=== PATIENT | female | born 1980 | race Asian ===

== ENCOUNTER 2019-05-17 00:37 | Inpatient (IN) | payer OTHER ==
[~2019-05-17] VITALS: Ht 157.5 cm; Wt 89.8 kg
--- NOTE | 2019-05-17 01:05 | Emergency Room Report ---
History of Present Illness General Chief Complaint: Chest Pain Source: Patient Present Illness HPI Is a 39-year-old female presents after acute onset of central chest discomfort. She reports having acute onset of symptoms. She had prior history of hypertension. She takes only an WINSTON inhibitor. She denies any other prior medical condition. She has no known prior cardiac condition. Allergies: Coded Allergies: No Known Allergies (Unverified , 05/17/19) Patient History Past Medical History: see triage record Last Menstrual Period: 04/14/19 Now: No Reviewed Nursing Documentation: PMH: Agreed; PSxH: Agreed Nursing Documentation-PMH Hx Hypertension: Yes Review of Systems All Other Systems: negative except mentioned in HPI Physical Exam Vital Signs Date Time Temp Pulse Resp B/P (MAP) Pulse Ox O2 Delivery O2 Flow Rate FiO2 05/17/19 00:28 98.2 100 16 198/125 (149) 96 Room Air Sp02 EP Interpretation: reviewed, normal General Appearance: normal inspection, well appearing, no apparent distress, alert Head: normocephalic, atraumatic ENT: normal ENT inspection, hearing grossly normal, normal voice Neck: normal inspection, full range of motion, supple, no bony tend Respiratory: normal inspection, lungs clear, normal breath sounds, no respiratory distress, no retraction, no wheezing Cardiovascular #1: regular rate, rhythm, no edema Gastrointestinal: normal inspection, normal bowel sounds, non tender, soft, no guarding, no hernia Genitourinary: no CVA tenderness Musculoskeletal: normal inspection, back normal, normal range of motion Neurologic: alert, motor strength/tone normal, wireless team member III-XII nml as tested, responsive, speech normal, normal inspection Psychiatric: normal inspection, judgement/insight normal, mood/affect normal Medical Decision Making Diagnostic Impression: Primary Impression: Chest pain Additional Impression: Frequent PVCs ER Course Patient presented for chest pain. Differential diagnosis include was not limited to myocardial injury, arrhythmia, overdose among others. Because of complexity of patient's case laboratory tests and imaging studies were ordered. Patient's laboratory testing showed initial normal troponin. Patient's initial EKG by paramedics showed multiple couplets of PVCs. Patient will be admitted for further evaluation of chest discomfort. Patient appears to be clinically stable. Labs Test 05/17/19 00:45 05/17/19 02:15 White Blood Count 9.6 K/UL (4.8-10.8) Red Blood Count 4.82 M/UL (4.20-5.40) Hemoglobin 13.8 G/DL (12.0-16.0) Hematocrit 42.4 % (37.0-47.0) Mean Corpuscular Volume 88 FL (80-99) Mean Corpuscular Hemoglobin 28.6 PG (27.0-31.0) Mean Corpuscular Hemoglobin Concent 32.5 G/DL (32.0-36.0) Red Cell Distribution Width 12.1 % (11.6-14.8) Platelet Count 324 K/UL (150-450) Mean Platelet Volume 5.6 FL (6.5-10.1) Neutrophils (%) (Auto) 61.9 % (45.0-75.0) Lymphocytes (%) (Auto) 30.4 % (20.0-45.0) Monocytes (%) (Auto) 4.5 % (1.0-10.0) Eosinophils (%) (Auto) 2.3 % (0.0-3.0) Basophils (%) (Auto) 0.9 % (0.0-2.0) Sodium Level 137 MMOL/L (136-145) Potassium Level 4.3 MMOL/L (3.5-5.1) Chloride Level 104 MMOL/L (98-107) Carbon Dioxide Level 26 MMOL/L (21-32) Anion Gap 7 mmol/L (5-15) Blood Urea Nitrogen 17 mg/dL (7-18) Creatinine 1.0 MG/DL (0.55-1.30) Estimat Glomerular Filtration Rate > 60 mL/min (>60) Glucose Level 129 MG/DL (74-106) Calcium Level 8.4 MG/DL (8.5-10.1) Total Bilirubin 0.4 MG/DL (0.2-1.0) Aspartate Amino Transf (AST/SGOT) 58 U/L (15-37) Alanine Aminotransferase (ALT/SGPT) 40 U/L (12-78) Alkaline Phosphatase 73 U/L (46-116) Troponin I 0.000 ng/mL (0.000-0.056) Pro-B-Type Natriuretic Peptide 76 pg/mL (0-125) Total Protein 8.1 G/DL (6.4-8.2) Albumin 3.4 G/DL (3.4-5.0) Globulin 4.7 g/dL Albumin/Globulin Ratio 0.7 (1.0-2.7) Lipase 166 U/L (73-393) Urine Color Pale yellow Urine Appearance Clear Urine pH 6 (4.5-8.0) Urine Specific [place] 1.020 (1.005-1.035) Urine Protein Negative (NEGATIVE) Urine Glucose (UA) Negative (NEGATIVE) Urine Ketones Negative (NEGATIVE) Urine Blood 1+ (NEGATIVE) Urine Nitrite Positive (NEGATIVE) Urine Bilirubin Negative (NEGATIVE) Urine Urobilinogen Normal MG/DL (0.0-1.0) Urine Leukocyte Esterase Negative (NEGATIVE) Urine RBC 0-2 /HPF (0 - 2) Urine WBC 0-2 /HPF (0 - 2) Urine Squamous Epithelial Cells Few /LPF (NONE/OCC) Urine Bacteria Few /HPF (NONE) Urine Oval Fat Bodies /LPF (NONE) Urine HCG, Qualitative Negative (NEGATIVE) EKG Diagnostic Results Rate: normal Rhythm: NSR ST Segments: no acute changes Last Vital Signs Date Time Temp Pulse Resp B/P (MAP) Pulse Ox O2 Delivery O2 Flow Rate FiO2 05/17/19 00:28 98.2 100 16 198/125 (149) 96 Room Air Status: improved Disposition: ADMITTED INPATIENT Condition: Stable Álvaro Ramos MD May 17, 2019 01:05
[2019-05-17 01:12] VITALS: BP 198/125
[2019-05-17 01:19] LABS: BASOPHILS % (AUTO) 0.9 % (0.0-2.0); EOSINOPHILS % (AUTO) 2.3 % (0.0-3.0); HEMATOCRIT 42.4 % (37.0-47.0); HEMOGLOBIN 13.8 G/DL (12.0-16.0); LYMPHOCYTES % (AUTO) 30.4 % (20.0-45.0); MEAN CORPUSCULAR VOLUME 88 FL (80-99); MONOCYTES % (AUTO) 4.5 % (1.0-10.0); NEUTROPHILS % (AUTO) 61.9 % (45.0-75.0); PLATELET COUNT 324 K/UL (150-450); RED BLOOD COUNT 4.82 M/UL (4.20-5.40); RED CELL DISTRIBUTION WIDTH 12.1 % (11.6-14.8); WHITE BLOOD COUNT 9.6 K/UL (4.8-10.8)
[2019-05-17 01:54] LABS: ANION GAP 7 mmol/L (5-15); BLOOD UREA NITROGEN 17 mg/dL (7-18); CALCIUM 8.4 MG/DL (8.5-10.1); CARBON DIOXIDE 26 MMOL/L (21-32); CHLORIDE 104 MMOL/L (98-107); POTASSIUM 4.3 MMOL/L (3.5-5.1); SODIUM 137 MMOL/L (136-145)
[2019-05-17 02:05] LABS: ALANINE AMINOTRANSFERASE 40 U/L (12-78); ALBUMIN 3.4 G/DL (3.4-5.0); ALBUMIN/GLOBULIN RATIO 0.7 (1.0-2.7); ALKALINE PHOSPHATASE 73 U/L (46-116); ASPARTATE AMINO TRANSFERASE 58 U/L (15-37); BILIRUBIN,TOTAL 0.4 MG/DL (0.2-1.0)
[2019-05-17 02:37] LABS: APPEARANCE,URINE CLEAR; BILIRUBIN, URINE NEGATIVE (NEGATIVE); COLOR,URINE PALE YELLOW; GLUCOSE, URINE (UA) NEGATIVE (NEGATIVE); KETONES,URINE NEGATIVE (NEGATIVE); LEUKOCYTE ESTERASE ,URINE NEGATIVE (NEGATIVE); NITRITE,URINE POSITIVE (NEGATIVE); PH,URINE 6 (4.5-8.0); PROTEIN,URINE NEGATIVE (NEGATIVE); UROBILINOGEN,URINE NORMAL MG/DL (0.0-1.0)
[2019-05-17 03:00] VITALS: BP 132/87
[2019-05-17] MEDS ORDERED: LOSARTAN POTASS25 MG ORAL (04:59)
[2019-05-17] MEDS ORDERED: Morphine Sulfate 2mg/ml Inj(IV/IM USE ONLY) IVP PRN ×2 (05:15→09:00)
[2019-05-17 08:00] VITALS: BP 124/90
[2019-05-17] MEDS: D5 1/2NS 1,000 ML IV SCH (08:45)
[2019-05-17] MEDS ORDERED: Morphine Sulfate 4mg/ml Inj (IV USE ONLY) IVP PRN (09:00)
[2019-05-17] MEDS: Losartan 50mg tab ORAL SCH (10:07)
--- NOTE | 2019-05-17 12:00 | Consultation ---
History of Present Illness General Date patient seen: May 17, 2019 Chief Complaint: Chest Pain Present Illness HPI 39 y/o F with hx of HTN presented to ED on 05/17 with acute onset of chest pain that happened when she was getting to fall asleep. has not had chest pain before , no SOB, cough, f/c. Has been having gas and abdominal bloating. Allergies: Coded Allergies: No Known Allergies (Unverified , 05/17/19) Medication History Scheduled Losartan Potassium* (Losartan Potassium*), 10 MG ORAL DAILY, (Reported) Patient History Healthcare decision maker Resuscitation status Advanced Directive on File Patient History Narrative Pmhx: as above Shx: reviewed Fhx: non contributory Physical Exam Last 24 Hour Vital Signs Date Time Temp Pulse Resp B/P (MAP) Pulse Ox O2 Delivery O2 Flow Rate FiO2 05/17/19 10:07 124/90 05/17/19 08:00 97.7 98 20 124/90 (101) 97 05/17/19 07:20 Room Air 05/17/19 05:30 98.6 98 16 132/87 98 Room Air 05/17/19 03:00 98.6 98 16 132/87 98 Room Air 05/17/19 01:12 100 16 Room Air 05/17/19 01:12 98.2 110 16 198/125 96 Room Air 05/17/19 00:28 98.2 100 16 198/125 (149) 96 Room Air Intake and Output 05/16/19 05/17/19 19:00 07:00 Output Total 0 ml Balance 0 ml Output Urine Total 0 ml Laboratory Tests Test 05/17/19 00:45 05/17/19 02:15 White Blood Count 9.6 K/UL (4.8-10.8) Red Blood Count 4.82 M/UL (4.20-5.40) Hemoglobin 13.8 G/DL (12.0-16.0) Hematocrit 42.4 % (37.0-47.0) Mean Corpuscular Volume 88 FL (80-99) Mean Corpuscular Hemoglobin 28.6 PG (27.0-31.0) Mean Corpuscular Hemoglobin Concent 32.5 G/DL (32.0-36.0) Red Cell Distribution Width 12.1 % (11.6-14.8) Platelet Count 324 K/UL (150-450) Mean Platelet Volume 5.6 FL (6.5-10.1) L Neutrophils (%) (Auto) 61.9 % (45.0-75.0) Lymphocytes (%) (Auto) 30.4 % (20.0-45.0) Monocytes (%) (Auto) 4.5 % (1.0-10.0) Eosinophils (%) (Auto) 2.3 % (0.0-3.0) Basophils (%) (Auto) 0.9 % (0.0-2.0) Sodium Level 137 MMOL/L (136-145) Potassium Level 4.3 MMOL/L (3.5-5.1) Chloride Level 104 MMOL/L (98-107) Carbon Dioxide Level 26 MMOL/L (21-32) Anion Gap 7 mmol/L (5-15) Blood Urea Nitrogen 17 mg/dL (7-18) Creatinine 1.0 MG/DL (0.55-1.30) Estimat Glomerular Filtration Rate > 60 mL/min (>60) Glucose Level 129 MG/DL (74-106) H Calcium Level 8.4 MG/DL (8.5-10.1) L Total Bilirubin 0.4 MG/DL (0.2-1.0) Aspartate Amino Transf (AST/SGOT) 58 U/L (15-37) H Alanine Aminotransferase (ALT/SGPT) 40 U/L (12-78) Alkaline Phosphatase 73 U/L (46-116) Troponin I 0.000 ng/mL (0.000-0.056) Pro-B-Type Natriuretic Peptide 76 pg/mL (0-125) Total Protein 8.1 G/DL (6.4-8.2) Albumin 3.4 G/DL (3.4-5.0) Globulin 4.7 g/dL Albumin/Globulin Ratio 0.7 (1.0-2.7) L Lipase 166 U/L (73-393) Urine Color Pale yellow Urine Appearance Clear Urine pH 6 (4.5-8.0) Urine Specific [place] 1.020 (1.005-1.035) Urine Protein Negative (NEGATIVE) Urine Glucose (UA) Negative (NEGATIVE) Urine Ketones Negative (NEGATIVE) Urine Blood 1+ (NEGATIVE) H Urine Nitrite Positive (NEGATIVE) H Urine Bilirubin Negative (NEGATIVE) Urine Urobilinogen Normal MG/DL (0.0-1.0) Urine Leukocyte Esterase Negative (NEGATIVE) Urine RBC 0-2 /HPF (0 - 2) Urine WBC 0-2 /HPF (0 - 2) Urine Squamous Epithelial Cells Few /LPF (NONE/OCC) Urine Bacteria Few /HPF (NONE) Urine Oval Fat Bodies /LPF (NONE) Urine HCG, Qualitative Negative (NEGATIVE) Height (Feet): 5 Height (Inches): 2.00 Weight (Pounds): 180 Medications Current Medications Medications (Trade) Dose Ordered Sig/Eric Route PRN Reason Start Time Stop Time Status Last Admin Dose Admin Dextrose/Sodium Chloride 1,000 ml @ 60 mls/hr [id number] IV 05/17/19 08:45 06/16/19 08:44 05/17/19 08:45 Losartan Potassium (Cozaar) 100 mg DAILY ORAL 05/17/19 09:00 06/16/19 08:59 05/17/19 10:07 Morphine Sulfate (Morphine Sulfate) 2 mg Q4H PRN IVP Severe Pain (Pain Scale 7-10) 05/17/19 09:00 05/24/19 08:59 Ondansetron HCl (Zofran) 4 mg PRN PRN IVP Nausea & Vomiting 05/17/19 05:15 Assessment/Plan Assessment/Plan: Abx: None Assessment: Chest pain Afebrile No leukocytosis -CXR p HTN Plan: -Continue to monitor off abx -f/u cx -Monitor CBC/CMP, temperatures Thank you for this consultation. Will continue to follow along with you. Discussed with Vijaya Griffin M.D. May 17, 2019 12:00
--- NOTE | 2019-05-17 12:45 | Cardiology Report ---
APPROVED REPORT EKG Measurement Heart [id number] 140P26 [id number] Sinus tachycardia with frequent premature ventricular complexes Otherwise normal ECG
[2019-05-17 16:00] VITALS: BP 120/79
--- NOTE | 2019-05-17 16:00 | History and Physical Report ---
DATE OF ADMISSION: 05/17/2019 TIME SEEN: 11 a.m. TUBE HEATER: Jerson Reynolds M.D. CHIEF COMPLAINT: Chest pain. BRIEF HISTORY: This is a 39-year-old female, who lives at home, presented yesterday afternoon with the chest pain, pressure-like, substernal. No radiation. No nausea or vomiting. No dizziness. No short of breath. The patient came to [facility], diagnosed with the above, admitted to telemetry for further treatment. Currently, chest pain has somewhat improved, no complaint. REVIEW OF SYSTEMS: Slight chest pain. No shortness of breath. No nausea, vomiting, or diarrhea. PAST MEDICAL HISTORY: Hypertension. PAST SURGICAL HISTORY: Ovarian cyst in the left. ALLERGIES: Denies. MEDICATIONS: Include morphine, losartan, Zofran, and magnesium. SOCIAL HISTORY: No smoking. No alcohol. No intravenous drug abuse. FAMILY HISTORY: Noncontributory. PHYSICAL EXAMINATION: GENERAL: Calm in bed, oriented x3, in no acute distress. VITAL SIGNS: Temperature is 97 degrees, pulse 98, respirations 20, and blood pressure 124/90. CARDIOVASCULAR: No murmur. LUNGS: Distant and clear. ABDOMEN: Positive bowel sounds. Soft, nontender, nondistended. EXTREMITIES: Show no cyanosis, clubbing, or edema NEUROLOGIC: The patient moves all extremities, slightly weak. LABORATORY AND DIAGNOSTIC DATA: CBC is normal. BMP shows glucose 129. Calcium 8.4. AST 58. Troponin 0.00. Lipase 166. Urinalysis showed positive nitrite. ASSESSMENT: 1. Chest pain. 2. Urinary tract infection. 3. Hypertension. PLAN: 1. Blood pressure and pain control. 2. Dietary followup. 3. Antibiotics per Infectious Disease. Saul Huggins D.O. DR: ELAINE JOB#: [id number] CC:
--- NOTE | 2019-05-17 17:01 | Diagnostic Imaging Report ---
Indication: Chest pain Technique: One view of the chest Comparison: none Findings: Lungs and pleural spaces are clear. Heart size is normal. Impression: No acute process
--- NOTE | 2019-05-17 18:50 | Cardiology Progress Note ---
Assessment/Plan Assessment/Plan The patient is seen and examined, full consult note will be dictated soon. Objective Last 24 Hour Vital Signs Date Time Temp Pulse Resp B/P (MAP) Pulse Ox O2 Delivery O2 Flow Rate FiO2 05/17/19 16:00 86 05/17/19 16:00 97.7 84 18 120/79 (93) 96 05/17/19 12:00 85 05/17/19 10:07 124/90 05/17/19 09:00 Room Air 05/17/19 08:00 97.7 98 20 124/90 (101) 97 05/17/19 08:00 83 05/17/19 07:20 Room Air 05/17/19 05:30 98.6 98 16 132/87 98 Room Air 05/17/19 03:00 98.6 98 16 132/87 98 Room Air 05/17/19 01:12 100 16 Room Air 05/17/19 01:12 98.2 110 16 198/125 96 Room Air 05/17/19 00:28 98.2 100 16 198/125 (149) 96 Room Air Intake and Output 05/16/19 05/17/19 18:59 06:59 Output Total 0 ml Balance 0 ml Output Urine Total 0 ml Laboratory Tests Test 05/17/19 00:45 05/17/19 02:15 05/17/19 16:00 White Blood Count 9.6 K/UL (4.8-10.8) Red Blood Count 4.82 M/UL (4.20-5.40) Hemoglobin 13.8 G/DL (12.0-16.0) Hematocrit 42.4 % (37.0-47.0) Mean Corpuscular Volume 88 FL (80-99) Mean Corpuscular Hemoglobin 28.6 PG (27.0-31.0) Mean Corpuscular Hemoglobin Concent 32.5 G/DL (32.0-36.0) Red Cell Distribution Width 12.1 % (11.6-14.8) Platelet Count 324 K/UL (150-450) Mean Platelet Volume 5.6 FL (6.5-10.1) L Neutrophils (%) (Auto) 61.9 % (45.0-75.0) Lymphocytes (%) (Auto) 30.4 % (20.0-45.0) Monocytes (%) (Auto) 4.5 % (1.0-10.0) Eosinophils (%) (Auto) 2.3 % (0.0-3.0) Basophils (%) (Auto) 0.9 % (0.0-2.0) Sodium Level 137 MMOL/L (136-145) Potassium Level 4.3 MMOL/L (3.5-5.1) Chloride Level 104 MMOL/L (98-107) Carbon Dioxide Level 26 MMOL/L (21-32) Anion Gap 7 mmol/L (5-15) Blood Urea Nitrogen 17 mg/dL (7-18) Creatinine 1.0 MG/DL (0.55-1.30) Estimat Glomerular Filtration Rate > 60 mL/min (>60) Glucose Level 129 MG/DL (74-106) H Calcium Level 8.4 MG/DL (8.5-10.1) L Total Bilirubin 0.4 MG/DL (0.2-1.0) Aspartate Amino Transf (AST/SGOT) 58 U/L (15-37) H Alanine Aminotransferase (ALT/SGPT) 40 U/L (12-78) Alkaline Phosphatase 73 U/L (46-116) Troponin I 0.000 ng/mL (0.000-0.056) 0.000 ng/mL (0.000-0.056) Pro-B-Type Natriuretic Peptide 76 pg/mL (0-125) Total Protein 8.1 G/DL (6.4-8.2) Albumin 3.4 G/DL (3.4-5.0) Globulin 4.7 g/dL Albumin/Globulin Ratio 0.7 (1.0-2.7) L Lipase 166 U/L (73-393) Urine Color Pale yellow Urine Appearance Clear Urine pH 6 (4.5-8.0) Urine Specific [place] 1.020 (1.005-1.035) Urine Protein Negative (NEGATIVE) Urine Glucose (UA) Negative (NEGATIVE) Urine Ketones Negative (NEGATIVE) Urine Blood 1+ (NEGATIVE) H Urine Nitrite Positive (NEGATIVE) H Urine Bilirubin Negative (NEGATIVE) Urine Urobilinogen Normal MG/DL (0.0-1.0) Urine Leukocyte Esterase Negative (NEGATIVE) Urine RBC 0-2 /HPF (0 - 2) Urine WBC 0-2 /HPF (0 - 2) Urine Squamous Epithelial Cells Few /LPF (NONE/OCC) Urine Bacteria Few /HPF (NONE) Urine Oval Fat Bodies /LPF (NONE) Urine HCG, Qualitative Negative (NEGATIVE) Jerson Reynolds MD May 17, 2019 18:50
[2019-05-17 20:00] VITALS: BP 129/69
--- NOTE | 2019-05-17 23:15 | Consultation ---
DATE OF CONSULTATION: 05/17/2019 CARDIOLOGY CONSULTATION CONSULTING PHYSICIAN: Jerson Reynolds M.D. REFERRING PHYSICIAN: Saul Huggins D.O. REASON FOR CONSULTATION: Management of chest pain. HISTORY OF PRESENT ILLNESS: The patient is a very pleasant 39-year-old female, who presents to the hospital with acute onset of chest pain that occurred last night while at home at the center of the chest, pressure like, nonradiating, and non-provoked. The patient had which was reported to be very high. At the time of arrival of paramedics, the patient had a rhythm strip which showed presence of PVCs and also blood pressure was reported to be elevated. At the time of arrival to this facility, blood pressure was recorded at 198/125 mmHg. The heart rate was 100. A 12-lead electrocardiogram shows sinus tachycardia at the rate of 104 with single ventricular premature complex. The patient states that she is going through hormonal changes and has been having irregular monthly cycles and associated hot flashes. She has had left ovarian cyst removed in the past. Denies any history of polycystic ovarian syndrome. She claims that she has been on losartan for blood pressure management. She tried diuretic in the past. She is seen by a rivet driver at [facility], who obtained a 2D echocardiography recently and was told that her heart was normal. She does not have any prior history of stress testing. PAST MEDICAL HISTORY: Hypertension and left ovarian cyst removal. PAST SURGICAL HISTORY: Status post left ovarian cyst removal. FAMILY HISTORY: No premature coronary artery disease in first-degree relatives. ALLERGIES: No known drug allergies. MEDICATIONS: List of medication: Losartan 100 mg p.o. daily. REVIEW OF SYSTEMS: A 12-system review done and essentially negative except what was mentioned in the history of present illness. PHYSICAL EXAMINATION: VITAL SIGNS: Blood pressure was 198/125 mmHg, heart rate of 100, respirations 16, temperature 98.2 degrees Fahrenheit, and O2 saturation 96% on room air. GENERAL: The patient is a very pleasant 39-year-old female, in no apparent respiratory distress. Alert and oriented x4. HEENT: Atraumatic and normocephalic. Anicteric. Pupils are equal, round, and reactive to light and accommodation. Extraocular muscles intact. NECK: JVP less than 5 cm. No carotid bruit. Carotid upstroke is 2+ bilaterally. CARDIOVASCULAR SYSTEM: Normal S1, S2. Regular rate and rhythm. Tachycardic. No murmurs, gallops, or rubs. PMI is at fourth intercostal space in the midclavicular line. LUNGS: Clear to auscultation bilaterally. ABDOMEN: Soft, nontender, and nondistended. No hepatosplenomegaly. Positive bowel sounds. EXTREMITIES: No evidence of edema, clubbing, or cyanosis. LABORATORY FINDINGS: WBC 9.6, hemoglobin 13.8, hematocrit 42.4%, and platelet count is 324,000. Sodium was 137, potassium is 4.3, chloride is 104, bicarbonate 26, BUN of 17, creatinine 1.0, glucose is 129, and calcium is 8.4. Troponin I x2 negative. ProBNP was 76. ASSESSMENT AND PLAN: The patient is a very unfortunate 39-year-old lady, who is seen in Cardiology consultation. 1. Atypical chest pain. CAD risk factors include hypertension. Chest x-ray is within normal limits. A 12-lead electrocardiogram does not show any acute ischemic features. I would like to obtain treadmill stress testing to rule out obstructive CAD. A 2D echocardiography will be done to assess left ventricular systolic. I would like to proceed with treadmill stress and echocardiography to rule out obstructive CAD. 2. History of hypertension. I would like to continue losartan as the patient's blood pressure is within normal limits. I will try to avoid beta-dunia and amlodipine until after the stress test is completed. Fasting lipid panel will be done for CAD risk stratification. I would like to thank, Dr. Huggins, for the courtesy of this consultation. Jerson Reynolds M.D. DR: Cyn JOB#: [id number] CC:
[2019-05-18] VITALS: BP 132/71
[2019-05-18] MEDS: D5 1/2NS 1,000 ML IV SCH ×2 (01:25→18:05)
[2019-05-18 04:00] VITALS: BP 124/86
[2019-05-18 08:00] VITALS: BP 123/95
[2019-05-18 09:30] LABS: BASOPHILS % (AUTO) 1.1 % (0.0-2.0); EOSINOPHILS % (AUTO) 3.5 % (0.0-3.0); HEMATOCRIT 39.8 % (37.0-47.0); HEMOGLOBIN 13.2 G/DL (12.0-16.0); LYMPHOCYTES % (AUTO) 28.9 % (20.0-45.0); MEAN CORPUSCULAR VOLUME 88 FL (80-99); MONOCYTES % (AUTO) 4.9 % (1.0-10.0); NEUTROPHILS % (AUTO) 61.6 % (45.0-75.0); PLATELET COUNT 296 K/UL (150-450)
[2019-05-18 09:40] LABS: ANION GAP 8 mmol/L (5-15); BLOOD UREA NITROGEN 15 mg/dL (7-18); CALCIUM 8.6 MG/DL (8.5-10.1); CARBON DIOXIDE 24 MMOL/L (21-32); CHLORIDE 107 MMOL/L (98-107); CHOLESTEROL 160 MG/DL (< 200); CREATININE 0.7 MG/DL (0.55-1.30); HDL CHOLESTEROL 43 MG/DL (40-60); POTASSIUM 4.2 MMOL/L (3.5-5.1); SODIUM 139 MMOL/L (136-145); TRIGLYCERIDES 59 MG/DL (30-150)
--- NOTE | 2019-05-18 10:06 | General Progress Note ---
Assessment/Plan Problem List: (1) Frequent PVCs ICD Codes: I49.3 - Ventricular premature depolarization SNOMED: 19342535 (2) Chest pain ICD Codes: R07.9 - Chest pain, unspecified SNOMED: 06380525 Status: stable, progressing Assessment/Plan: cardio f/u dc if clear Subjective Constitutional: Reports: weakness Allergies: Coded Allergies: No Known Allergies (Unverified , 05/17/19) All Systems: reviewed and negative except above Subjective calm in bed Objective Last 24 Hour Vital Signs Date Time Temp Pulse Resp B/P (MAP) Pulse Ox O2 Delivery O2 Flow Rate FiO2 05/18/19 04:00 98.0 80 18 124/86 (99) 99 05/18/19 04:00 86 05/18/19 00:00 97.9 85 18 132/71 (91) 99 05/18/19 00:00 83 05/17/19 21:00 Room Air 05/17/19 20:00 90 05/17/19 20:00 97.9 79 18 129/69 (89) 97 05/17/19 16:00 86 05/17/19 16:00 97.7 84 18 120/79 (93) 96 05/17/19 12:00 85 05/17/19 10:07 124/90 Intake and Output 05/17/19 05/18/19 19:00 07:00 Intake Total 140 ml Output Total 500 ml Balance -360 ml Intake Oral 140 ml Output Urine Total 500 ml # Voids 3 2 Laboratory Tests 05/17/19 16:00: Troponin I 0.000 05/18/19 01:00: Troponin I 0.000 05/18/19 09:00: Troponin I 0.000, White Blood Count 8.0, Red Blood Count 4.50, Hemoglobin 13.2, Hematocrit 39.8, Mean Corpuscular Volume 88, Mean Corpuscular Hemoglobin 29.4, Mean Corpuscular Hemoglobin Concent 33.2, Red Cell Distribution Width 12.0, Platelet Count 296, Mean Platelet Volume 5.6L, Neutrophils (%) (Auto) 61.6, Lymphocytes (%) (Auto) 28.9, Monocytes (%) (Auto) 4.9, Eosinophils (%) (Auto) 3.5H, Basophils (%) (Auto) 1.1, Sodium Level 139, Potassium Level 4.2, Chloride Level 107, Carbon Dioxide Level 24, Anion Gap 8, Blood Urea Nitrogen 15, Creatinine 0.7, Estimat Glomerular Filtration Rate > 60, Glucose Level 89, Calcium Level 8.6, Triglycerides Level 59, Cholesterol Level 160, LDL Cholesterol 102H, HDL Cholesterol 43, Cholesterol/HDL Ratio 3.7 Height (Feet): 5 Height (Inches): 2.00 Weight (Pounds): 180 General Appearance: alert EENT: normal ENT inspection Neck: normal alignment Cardiovascular: normal peripheral pulses, normal rate, regular rhythm Respiratory/Chest: chest wall non-tender, lungs clear, normal breath sounds Abdomen: normal bowel sounds, non tender, soft Extremities: normal inspection Edema: no edema noted Arm (L), no edema noted Arm (R), no edema noted Leg (L), no edema noted Leg (R), no edema noted Pedal (L), no edema noted Pedal (R), no edema noted Generalized Neurologic: responsive Skin: normal pigmentation, warm/dry Saul Huggins DO May 18, 2019 10:06
[2019-05-18] MEDS: Losartan 50mg tab ORAL SCH (10:09)
[2019-05-18 12:00] VITALS: BP 108/69
--- NOTE | 2019-05-18 13:26 | Infectious Diseases Prog Note ---
Assessment/Plan Assessment/Plan Abx: None Assessment: Chest pain Afebrile No leukocytosis -CXR No acute process HTN Plan: -Continue to monitor off abx -f/u cx -Monitor CBC/CMP, temperatures Thank you for this consultation. Will continue to follow along with you. Discussed with RN Subjective Allergies: Coded Allergies: No Known Allergies (Unverified , 05/17/19) Subjective afebrile no leukocytosis off abx Objective Vital Signs Last 24 Hour Vital Signs Date Time Temp Pulse Resp B/P (MAP) Pulse Ox O2 Delivery O2 Flow Rate FiO2 05/18/19 10:09 132/94 05/18/19 09:00 Room Air 05/18/19 04:00 98.0 80 18 124/86 (99) 99 05/18/19 04:00 86 05/18/19 00:00 97.9 85 18 132/71 (91) 99 05/18/19 00:00 83 05/17/19 21:00 Room Air 05/17/19 20:00 90 05/17/19 20:00 97.9 79 18 129/69 (89) 97 05/17/19 16:00 86 05/17/19 16:00 97.7 84 18 120/79 (93) 96 Height (Feet): 5 Height (Inches): 2.00 Weight (Pounds): 180 Objective GENERAL: Calm in bed, oriented x3, in no acute distress. CARDIOVASCULAR: No murmur. LUNGS: Distant and clear. ABDOMEN: Positive bowel sounds. Soft, nontender, nondistended. EXTREMITIES: Show no cyanosis, clubbing, or edema NEUROLOGIC: The patient moves all extremities, slightly weak. Laboratory Tests Test 05/17/19 16:00 05/18/19 01:00 05/18/19 09:00 Troponin I 0.000 ng/mL (0.000-0.056) 0.000 ng/mL (0.000-0.056) 0.000 ng/mL (0.000-0.056) White Blood Count 8.0 K/UL (4.8-10.8) Red Blood Count 4.50 M/UL (4.20-5.40) Hemoglobin 13.2 G/DL (12.0-16.0) Hematocrit 39.8 % (37.0-47.0) Mean Corpuscular Volume 88 FL (80-99) Mean Corpuscular Hemoglobin 29.4 PG (27.0-31.0) Mean Corpuscular Hemoglobin Concent 33.2 G/DL (32.0-36.0) Red Cell Distribution Width 12.0 % (11.6-14.8) Platelet Count 296 K/UL (150-450) Mean Platelet Volume 5.6 FL (6.5-10.1) L Neutrophils (%) (Auto) 61.6 % (45.0-75.0) Lymphocytes (%) (Auto) 28.9 % (20.0-45.0) Monocytes (%) (Auto) 4.9 % (1.0-10.0) Eosinophils (%) (Auto) 3.5 % (0.0-3.0) H Basophils (%) (Auto) 1.1 % (0.0-2.0) Sodium Level 139 MMOL/L (136-145) Potassium Level 4.2 MMOL/L (3.5-5.1) Chloride Level 107 MMOL/L (98-107) Carbon Dioxide Level 24 MMOL/L (21-32) Anion Gap 8 mmol/L (5-15) Blood Urea Nitrogen 15 mg/dL (7-18) Creatinine 0.7 MG/DL (0.55-1.30) Estimat Glomerular Filtration Rate > 60 mL/min (>60) Glucose Level 89 MG/DL (74-106) Calcium Level 8.6 MG/DL (8.5-10.1) Triglycerides Level 59 MG/DL (30-150) Cholesterol Level 160 MG/DL (< 200) LDL Cholesterol 102 mg/dL (<100) H HDL Cholesterol 43 MG/DL (40-60) Cholesterol/HDL Ratio 3.7 (3.3-4.4) Current Medications Medications (Trade) Dose Ordered Sig/Eric Route PRN Reason Start Time Stop Time Status Last Admin Dose Admin Dextrose/Sodium Chloride 1,000 ml @ 60 mls/hr [id number] IV 05/17/19 08:45 06/16/19 08:44 05/17/19 08:45 Losartan Potassium (Cozaar) 100 mg DAILY ORAL 05/17/19 09:00 06/16/19 08:59 05/18/19 10:09 Morphine Sulfate (Morphine Sulfate) 2 mg Q4H PRN IVP Severe Pain (Pain Scale 7-10) 05/17/19 09:00 05/24/19 08:59 Ondansetron HCl (Zofran) 4 mg PRN PRN IVP Nausea & Vomiting 05/17/19 05:15 Vijaya Mas M.D. May 18, 2019 13:26
--- NOTE | 2019-05-18 13:42 | Cardiology Report ---
APPROVED REPORT EKG Measurement Heart [id number] PA 154P15 [id number] Normal sinus rhythm Normal ECG
[2019-05-18 16:00] VITALS: BP 118/73
[2019-05-18 20:00] VITALS: BP 129/91
--- NOTE | 2019-05-20 09:51 | Discharge Summary ---
Discharge Summary Discharge Summary _ DATE OF ADMISSION: 05/17/2019 DATE OF DISCHARGE: 05/18/2019 DISCHARGED BY: Dr. Saul Huggins CONSULTANTS: Dr. Vijaya Reynolds BRIEF HOSPITAL COURSE: Patient is a 39-year-old female, who lives at home, who presented to ED due to chest pain, described to be pressure-like and located substernal. There was no radiation. No nausea or vomiting. No dizziness. No shortness of breath. She has medical history of hypertension. Upon evaluation at the ED, blood pressure was elevated to 198/125. Heart rate 100. Blood work did not show any leukocytosis. Hemoglobin and hematocrit were stable. Electrolytes were normal. Troponin was negative. Urinalysis showed positive nitrite. Initial EKG at paramedics showed multiple couplets of PVCs. Chest x-ray was negative. She was given magnesium sulfate. She was given pain management. She was then admitted for further work-up. Tutor Coordinator was consulted. Chest pain occurred non-provoked. Twelve-lead electrocardiogram showed sinus tachycardia at a rate of 104 with single ventricular premature complex. Patient stated she is going through hormonal changes and has been having irregular monthly cycles with associated hot flashes. She had left ovarian cyst removed in the past. She was continued on losartan for blood pressure support. Cardiac enzymes were negative. Lipid panel showed LDL at 102. She underwent treadmill stress test. Patient was eventually cleared for discharge home. FINAL DIAGNOSES: Atypical chest pain with elevated blood pressure Hypertension DISPOSITION: Patient was discharged home. DISCHARGE MEDICATIONS: Refer to Discharge Medication List. DISCHARGE INSTRUCTIONS: Follow-up in a week. I have been assigned to complete a discharge summary on this account, I was not involved with the patient's management.--EDILBERTO Shipley Jacqueline Robles NP May 20, 2019 09:51
== END 2019-05-18 22:00 | disposition home or self-care (01) | DRG 203 ==
LOC: EDBD 00:37 → EMR 01:00 → 2E 03:29 → EDBEDREQ 03:54 → 2E 05:37
DX: R07.89 Other chest pain (principal); I10 Essential (primary) hypertension; N39.0 Urinary tract infection, site not specified; I49.3 Ventricular premature depolarization; R00.0 Tachycardia, unspecified
CPT/HCPCS: 36415; 71045; 80048; 80053; 80061; 81003; 81025; 83690; 83880; 84484; 85025; 93005; 93017; 93350; 96365; 99285; J7030